=== PATIENT | female | born 1990 | race Caucasian/White ===

== ENCOUNTER 2016-09-20 14:11 | Emergency (ER) | payer MEDICAID, OTHER ==
[~2016-09-20] VITALS: Ht 149.9 cm; Wt 63.0 kg
[2016-09-20 14:36] VITALS: Ht 149.9 cm; Wt 63.0 kg
--- NOTE | 2016-09-20 16:45 | RADRPT ---
PROCEDURE: US Pelvis. CLINICAL INDICATION: Vaginal bleeding TECHNIQUE: Multiple sonographic images of the pelvis were obtained utilizing a transabdominal and endovaginal technique. The images were reviewed on a PACS workstation. COMPARISON: None. FINDINGS: The uterus is visualized and measures 9.1 x 5 x 5.4 cm in size. A single intrauterine gestational s ac is seen. No croup or yolk sac is identified. The mean gestational sac and 91.6 cm which has not is made to Saisho age of 6 weeks and 3 days. There is no evidence for free fluid. The right ovary has a normal echotexture and measures 3 x 2.2 x 2.7 cm. The left ovary has a normal echotexture and measures 2.5 x 1.6 x 1.80 cm. No adnexal masses are noted. IMPRESSION: Single intrauterine gestational sac without evidence of a pole. The findings may represent an early . Correlation with serial beta HCG levels is suggested as well as a short interval follow-up. RPTAT: HPNM Physician Yany Date Time Electronically viewed and signed by Physician Yany on 09/20/2016 16:44 /
[2016-09-20] MEDS ORDERED: ACET500C5 PO (17:02)
--- NOTE | 2016-09-20 17:05 | ERD ---
ER Documentation Chief Complaint Date/Time DATE: 09/20/16 TIME: 17:03 Chief Complaint lower abdominal and vaginal bleeding since yesterday ; LMP - 07/28/16 HPI 26-year-old female presents with vaginal bleeding since yesterday. She is approximately 6 weeks by dates. She was referred from [facility] clinic for evaluation for repeat ultrasound and possible D&C. Patient is a G2 para 1. Patient said that for possible clots but no noticeable tissue. She denies chest pain, shortness of breath or dizziness. ROS All systems reviewed and are negative except as per history of present illness. Medications Home Meds Active Scripts Acetaminophen* (Tylophen*) 500 Mg Capsule, 1 CAP PO Q6H Y for PAIN AND OR ELEVATED TEMP, #15 CAP Prov:FAROOQ STEWART MD 09/20/16 Allergies Allergies: Coded Allergies: No Known Allergy (Unverified , 03/01/14) PMhx/Soc Medical and Surgical Hx: pt denies Medical Hx, pt denies Surgical Hx History of Surgery: No Anesthesia Reaction: No Hx Neurological Disorder: No Hx Respiratory Disorders: No Hx Cardiac Disorders: No Hx Psychiatric Problems: No Hx Miscellaneous Medical Probl: No Hx Alcohol Use: No Hx Substance Use: No Hx Tobacco Use: No Physical Exam Vitals Vital Signs Date Time Temp Pulse Resp B/P Pulse Ox O2 Delivery O2 Flow Rate FiO2 09/20/16 14:36 98.9 102 19 132/75 100 Physical Exam Const: [] Alert, [id number]. Head: Atraumatic Eyes: Normal Conjunctiva ENT: Normal External Ears, Nose and Mouth. Neck: Full range of motion..~ No meningismus. Resp: Clear to auscultation bilaterally Cardio: Regular rate and rhythm, no murmurs Abd: Soft, non tender, non distended. Normal bowel sounds Skin: No petechiae or rashes Back: No midline or flank tenderness Ext: No cyanosis, or edema Neur: Awake and alert Psych: Normal Mood and Affect Procedures/MDM Review of the medical records brought with the patient shows that the patient is Rh+. There is an informal ultrasound which is not detailed that shows possible antibiotic demise at 6 weeks 2 days. A repeat ultrasound today shows a gestational sac without evidence of pole or yolk sac. Differential includes early , failed . There is no evidence of ectopic . Call was placed to [facility] today. Quantitative hCG was drawn today was pending. Patient presents with vaginal bleeding first trimester . Differential includes early normal , incomplete , ectopic . Patient will be discharged home instructions for repeat labs and reevaluation in 2 days. Patient's primary care or OB clinic was advised of the plan. Patient was otherwise advised to recheck for worsening bleeding, fevers, vomiting, new worsening symptoms. The patient was stable with no new complaints during the ER course. Clinically, there is no current evidence to suggest meningitis, sepsis, acute abdomen, pneumonia, acute coronary syndrome, pulmonary embolism, or any other emergent condition appearing to require further evaluation or hospitalization. The patient should certainly return for any new or worsening symptoms per the aftercare instructions. They should otherwise follow-up with her primary care doctor for reevaluation this week. Departure Diagnosis: Primary Impression: Vaginal bleeding in patient at less than 20 weeks ges... Condition: Stable Patient Instructions: Bleeding During Early Additional Instructions: anna examines otro vez en 2 kurtz. hay solo un bolsa horita . es posiblemente aborto , embarazo temprano , o ectopico y necesita TERRY palacio KEVIN N. MD Sep 20, 2016 17:05
== END 2016-09-20 17:20 | disposition home or self-care (01) ==
LOC: FTE 14:11
DX: O20.9 Hemorrhage in early pregnancy, unspecified (principal); Z3A.01 Less than 8 weeks gestation of pregnancy
CPT/HCPCS: 76801; 76817; Z7502

== ENCOUNTER 2016-09-22 15:35 | Emergency (ER) | payer MEDICAID ==
[~2016-09-22] VITALS: Ht 157.5 cm; Wt 64.0 kg
[~2016-09-22 15:35] MED LIST: ACET500C5 PO
[2016-09-22 15:38] VITALS: Ht 157.5 cm; Wt 64.0 kg
[2016-09-22 18:03] LABS: ADD SCAN DIFF NO
[2016-09-22 18:05] LABS: BASOPHIL # 0.1 10^3/ul (0.0-0.1); BASOPHILS % 0.6 % (0.0-2.0); EOSINOPHILS # 0.2 10^3/ul (0.0-0.5); HEMATOCRIT 43.9 % (37.0-47.0); HEMOGLOBIN 14.2 g/dl (12.0-16.0); LYMPHOCYTES # 3.9 10^3/ul (0.8-2.9); LYMPHOCYTES % 33.4 % (15.0-51.0); MEAN CORPUSCULAR HEMOGLOBIN 28.3 pg (29.0-33.0); MEAN CORPUSCULAR HGB CONC 32.3 g/dl (32.0-37.0); MEAN CORPUSCULAR VOLUME 87.6 fl (82.0-101.0); MEAN PLATELET VOLUME 9.8 fl (7.4-10.4); MONOCYTE # 0.9 10^3/ul (0.3-0.9); MONOCYTES % 7.7 % (0.0-11.0); NEUTROPHIL # 6.6 10^3/ul (1.6-7.5); PLATELET COUNT 250 10^3/UL (140-415); RED BLOOD COUNT 5.01 10^6/ul (4.20-5.40); RED CELL DISTRIBUTION WIDTH 13.3 % (11.5-14.5); WHITE BLOOD COUNT 11.8 10^3/ul (4.8-10.8)
[2016-09-22 18:10] LABS: ADD UMIC YES; URINE BILIRUBIN (Dip) NEGATIVE (NEGATIVE); URINE BLOOD (Dip) 3+ (NEGATIVE); URINE COLOR LT. YELLOW (YELLOW); URINE GLUCOSE (Dip) NEGATIVE (NEGATIVE); URINE KETONES (Dip) NEGATIVE (NEGATIVE); URINE LEUKOCYTE ESTERASE (Dip) 1+ (NEGATIVE); URINE NITRITE (Dip) NEGATIVE (NEGATIVE); URINE TOTAL PROTEIN (Dip) NEGATIVE (NEGATIVE); URINE UROBILINOGEN (Dip) 0.2 E.U./dL (0.1-1.0)
[2016-09-22 18:20] LABS: BACTERIA,URINE MODERATE; SQUAMOUS EPITHELIAL CELL,UR MANY; URINE RBCS >50 /HPF (0)
--- NOTE | 2016-09-22 18:29 | RADRPT ---
PROCEDURE: OB Ultrasound. CLINICAL INDICATION: Positive test. TECHNIQUE: Ultrasound of the pelvis was performed with transabdominal and transvaginal sonography in the axial and sagittal planes. COMPARISON: 09/20/2016. FINDINGS: There is a single intrauterine gestational sac. pole and yolk sac are not visualized. There is a subchorionic hemorrhage measuring 0.6 x 0.3 cm and a second subchorionic hemorrhage measuring 0 .7 x 0.1 cm. Mean sac diameter is 1.51 cm. Menstrual age by ultrasound dates is 6 weeks 1 day. This indicates an expected date of delivery of 05/17/2017. The right ovary appears normal measuring 2.9 x 1.7 x 2.0 cm. The left ovary appears normal measuring 2.9 x 1.8 x 2.2 cm. Color Doppler and pulsed Doppler sonography demonstrate normal flow to the ovaries. There is no other pelvic mass or free fluid. IMPRESSION: 1. Single intrauterine gestational sac measuring 1.5 cm. pole and yolk sac are not visualize d indicating probable failed . However, due to the small gestational sac size, follow-up u ltrasound in 7 days is advised. 2. Small subchorionic hemorrhages. 3. Otherwise unremarkable study. RPTAT: QQ .Ivan Fontana MD, Date Time Electronically viewed and signed by .Ivan Fontana MD, on 09/22/2016 18:29 .R/
--- NOTE | 2016-09-22 19:54 | ERD ---
ER Documentation Chief Complaint Date/Time DATE: 09/22/16 TIME: 19:52 Chief Complaint PELVIC PAIN,6 WEEKS ,EPISODES OF BLEEDING HPI This 26-year-old female presents with vaginal bleeding 2 days ago. At that time she had a small gestational sac without pole or yolk sac. She had seen her OB on that same day and had a quantitative hCG G drawn but we do not have the results. Patient appeared to have good follow-up and was supposed to see her OB for recheck today. She presents saying that her OB told her to go to [facility] as they could not see her. The reasons are unclear. The patient had no longer has pain or bleeding has no symptoms of all currently. ROS All systems reviewed and are negative except as per history of present illness. Medications Home Meds Active Scripts Acetaminophen* (Tylophen*) 500 Mg Capsule, 1 CAP PO Q6H Y for PAIN AND OR ELEVATED TEMP, #15 CAP Prov:FAROOQ STEWART MD 09/20/16 Allergies Allergies: Coded Allergies: No Known Allergy (Unverified , 09/22/16) PMhx/Soc Medical and Surgical Hx: pt denies Medical Hx, pt denies Surgical Hx History of Surgery: No Anesthesia Reaction: No Hx Neurological Disorder: No Hx Respiratory Disorders: No Hx Cardiac Disorders: No Hx Psychiatric Problems: No Hx Miscellaneous Medical Probl: No Hx Alcohol Use: No Hx Substance Use: No Hx Tobacco Use: No Smoking Status: Never smoker Physical Exam Vitals Vital Signs Date Time Temp Pulse Resp B/P Pulse Ox O2 Delivery O2 Flow Rate FiO2 09/22/16 15:38 98.5 95 18 125/71 98 Physical Exam Const: [] Head: Atraumatic Eyes: Normal Conjunctiva ENT: Normal External Ears, Nose and Mouth. Neck: Full range of motion..~ No meningismus. Resp: Clear to auscultation bilaterally Cardio: Regular rate and rhythm, no murmurs Abd: Soft, non tender, non distended. Normal bowel sounds Skin: No petechiae or rashes Back: No midline or flank tenderness Ext: No cyanosis, or edema Neur: Awake and alert Psych: Normal Mood and Affect Result Diagram: 09/22/16 2665 Results 24 hrs Laboratory Tests Test 09/22/16 17:49 09/22/16 17:50 White Blood Count 11.810^3/ul Red Blood Count 5.0110^6/ul Hemoglobin 14.2g/dl Hematocrit 43.9% Mean Corpuscular Volume 87.6fl Mean Corpuscular Hemoglobin 28.3pg Mean Corpuscular Hemoglobin Concent 32.3g/dl Red Cell Distribution Width 13.3% Platelet Count 03870^3/UL Mean Platelet Volume 9.8fl Neutrophils % 56.0% Lymphocytes % 33.4% Monocytes % 7.7% Eosinophils % 2.0% Basophils % 0.6% Nucleated Red Blood Cells % 0.0/100WBC Neutrophils # 6.610^3/ul Lymphocytes # 3.910^3/ul Monocytes # 0.910^3/ul Eosinophils # 0.210^3/ul Basophils # 0.110^3/ul Nucleated Red Blood Cells # 0.010^3/ul Beta HCG, Quantitative 39106.0mIU/ml Urine Color LT. YELLOW Urine Clarity SLIGHTLY CLOUDY Urine pH 7.0 Urine Specific [place] <=1.005 Urine Ketones NEGATIVE Urine Nitrite NEGATIVE Urine Bilirubin NEGATIVE Urine Urobilinogen 0.2 E.U./dL Urine Leukocyte Esterase 1+ Urine Microscopic RBC >50/HPF Urine Microscopic WBC >50/HPF Urine Squamous Epithelial Cells MANY Urine Bacteria MODERATE Urine Hemoglobin 3+ Urine Glucose NEGATIVE% Urine Total Protein NEGATIVE Procedures/MDM Quantitative hCG is 26,913. Patient is Rh+ from previous lab results brought by the patient's. Repeat ultrasound shows similar 1.5 cm gestational sac without pole or yolk sac. There is no visible adnexal masses or suggestion of ectopic . Patient was stable amatory throughout the ED course. Patient has vaginal bleeding which is currently resolved of uncertain etiology. She may have incomplete although early or ectopic still cannot be ruled out although less likely. She will need an additional confirmed quantitative hCG and OB follow-up. Patient is advised to follow-up with OB clinic although possibly some insurance issues prevented her from returning to her OB clinic. She should have an additional hCG check in 2 days for further confirmation. She should return sooner for fevers, vomiting, new worsening symptoms Departure Diagnosis: Primary Impression: Vaginal bleeding before 22 weeks gestation Additional Impression: Incomplete Condition: Stable Patient Instructions: Vaginal Bleed in , Miscarriage (Incomplete) Additional Instructions: HAY POQUITO BOLSA . CHEQUE HORMONERS OTOR VEZ 2-3 SUMMERS. MAS PRONTO PARA MAS SIMPTOMAS. FAROOQ STEWART MD Sep 22, 2016 19:54
[2016-09-22 20:11] VITALS: BP 136/75; PULSE 93; RESP 16; TEMP 98.5
== END 2016-09-22 20:12 | disposition home or self-care (01) ==
LOC: FTE 15:35
DX: O20.9 Hemorrhage in early pregnancy, unspecified (principal); R10.2 Pelvic and perineal pain; Z3A.01 Less than 8 weeks gestation of pregnancy
CPT/HCPCS: 76801; 76817; 81001; 84702; 85025; Z7502; 81003

== ENCOUNTER 2016-10-03 14:34 | Emergency (ER) | payer MEDICAID ==
[~2016-10-03] VITALS: Ht 160 cm; Wt 63.0 kg
[2016-10-03 14:35] VITALS: Ht 160 cm; Wt 63.0 kg
[2016-10-03] MEDS ORDERED: ACETAMINOPHEN 325 MG TAB PO STA (15:03)
[2016-10-03 15:44] LABS: ADD SCAN DIFF NO
[2016-10-03 15:49] LABS: BASOPHIL # 0.1 10^3/ul (0.0-0.1); BASOPHILS % 0.5 % (0.0-2.0); EOSINOPHILS # 0.2 10^3/ul (0.0-0.5); EOSINOPHILS % 1.5 % (0.0-7.0); HEMATOCRIT 39.1 % (37.0-47.0); HEMOGLOBIN 13.1 g/dl (12.0-16.0); LYMPHOCYTES # 2.6 10^3/ul (0.8-2.9); LYMPHOCYTES % 22.7 % (15.0-51.0); MEAN CORPUSCULAR HEMOGLOBIN 29.5 pg (29.0-33.0); MEAN CORPUSCULAR HGB CONC 33.5 g/dl (32.0-37.0); MEAN CORPUSCULAR VOLUME 88.1 fl (82.0-101.0); MEAN PLATELET VOLUME 10.2 fl (7.4-10.4); MONOCYTE # 0.8 10^3/ul (0.3-0.9); MONOCYTES % 6.7 % (0.0-11.0); NEUTROPHIL # 7.9 10^3/ul (1.6-7.5); NEUTROPHILS % 68.2 % (39.0-77.0); PLATELET COUNT 209 10^3/UL (140-415); RED BLOOD COUNT 4.44 10^6/ul (4.20-5.40); RED CELL DISTRIBUTION WIDTH 13.1 % (11.5-14.5); WHITE BLOOD COUNT 11.6 10^3/ul (4.8-10.8)
--- NOTE | 2016-10-03 15:56 | RADRPT ---
PROCEDURE: OB Ultrasound. CLINICAL INDICATION: Positive test. Vaginal bleeding. TECHNIQUE: Ultrasound of the pelvis was performed with transabdominal and transvaginal sonography in the axial and sagittal planes. COMPARISON: OB ultrasound dated 09/22/2016 which demonstrated a single intrauterine gestational sa c with no pole or yolk sac. FINDINGS: The previously noted intrauterine gestational sac is no longer present. Endometrial thickness is 10 .2 mm. The uterus is normal in size with no mass demonstrated. The right ovary appears normal measuring 2.4 x 2.3 x 2.3 cm. The left ovary appears normal measuring 2.1 x 1.5 x 2.2 cm. Color Doppler and pulsed Doppler sonography demonstrate normal flow to the ovaries. There is no other pelvic mass or free fluid. IMPRESSION: 1. Previously noted intrauterine gestational sac is no longer present consistent with recent sponta neous . 2. Normal endometrium. 3. Otherwise normal study. RPTAT: QQ .Ivan Fontana MD, Date Time Electronically viewed and signed by .Ivan Fontana MD, on 10/03/2016 15:56 .R/
--- NOTE | 2016-10-03 16:53 | ERD ---
ER Documentation Chief Complaint Date/Time DATE: 10/03/16 TIME: 16:52 Chief Complaint vag bleed x 2 weeks with cramping , 8 weeks preg HPI 26-year-old female approximately 8 weeks by dates and has had vaginal bleeding intermittently for last 2 weeks with cramping. She seen by me twice approximately 2 weeks AGO. She had 2 successive ultrasounds with failed . She is being followed by OB but was being referred to [facility] for possible D&C due to insurance issues. Her second visit she had a quantitative hCG of 26,000 and again a failed with gestational sac only. Patient appears that she may have been lost to follow-up and has been bleeding at home for the last 2 weeks and today passed some clots and possible tissue and had worsening pain. She denies fevers, vomiting, additional symptoms. Patient is Rh+ from review of records. ROS All systems reviewed and are negative except as per history of present illness. Medications Home Meds Active Scripts Acetaminophen* (Tylophen*) 500 Mg Capsule, 1 CAP PO Q6H Y for PAIN AND OR ELEVATED TEMP, #15 CAP Prov:FAROOQ STEWART MD 09/20/16 Allergies Allergies: Coded Allergies: No Known Allergy (Unverified , 09/22/16) PMhx/Soc History of Surgery: No Anesthesia Reaction: No Hx Neurological Disorder: No Hx Respiratory Disorders: No Hx Cardiac Disorders: No Hx Psychiatric Problems: No Hx Miscellaneous Medical Probl: No Hx Alcohol Use: No Hx Substance Use: No Hx Tobacco Use: No Physical Exam Vitals Vital Signs Date Time Temp Pulse Resp B/P Pulse Ox O2 Delivery O2 Flow Rate FiO2 10/03/16 14:35 100.0 88 18 136/78 99 Physical Exam Const: [] Alert, uncomfortable due to active pelvic cramping. Head: Atraumatic Eyes: Normal Conjunctiva ENT: Normal External Ears, Nose and Mouth. Neck: Full range of motion..~ No meningismus. Resp: Clear to auscultation bilaterally Cardio: Regular rate and rhythm, no murmurs Abd: Soft, non tender, non distended. Normal bowel sounds. Pelvic exam with a umbrella tipper shows some likely products of conception in the office. There was significant bleeding. Skin: No petechiae or rashes Back: No midline or flank tenderness Ext: No cyanosis, or edema Neur: Awake and alert Psych: Normal Mood and Affect Result Diagram: 10/03/16 1525 Results 24 hrs Laboratory Tests Test 10/03/16 15:25 White Blood Count 11.610^3/ul Red Blood Count 4.4410^6/ul Hemoglobin 13.1g/dl Hematocrit 39.1% Mean Corpuscular Volume 88.1fl Mean Corpuscular Hemoglobin 29.5pg Mean Corpuscular Hemoglobin Concent 33.5g/dl Red Cell Distribution Width 13.1% Platelet Count 18549^3/UL Mean Platelet Volume 10.2fl Neutrophils % 68.2% Lymphocytes % 22.7% Monocytes % 6.7% Eosinophils % 1.5% Basophils % 0.5% Nucleated Red Blood Cells % 0.0/100WBC Neutrophils # 7.910^3/ul Lymphocytes # 2.610^3/ul Monocytes # 0.810^3/ul Eosinophils # 0.210^3/ul Basophils # 0.110^3/ul Nucleated Red Blood Cells # 0.010^3/ul Beta HCG, Quantitative 6178.5mIU/ml Current Medications Medications (Trade) Dose Ordered Sig/Nacho Route PRN Reason Start Time Stop Time Status Last Admin Dose Admin Acetaminophen (Tylenol Tab) 650 mg ONCE STAT PO 10/03/16 15:03 10/03/16 15:05 DC 10/03/16 15:12 Procedures/MDM Pelvic exam with umbrella tipper using ring forceps the tissue was removed from the office. The bleeding subsequently immediately stopped.. Patient felt much better after removal of the tissue. Pelvic ultrasound shows a previous gestational sac is no longer than there is no evidence of adnexal or intrauterine . Quantitative hCG today is 6178. Hemoglobin is normal. Patient stable ambulatory toward the end of the ER course. With no complaints. Patient appears to have a completed miscarriage. Quantitative hCG levels are still high but given the clinical course with products of conception removed today suspicion for ectopic is low but patient is advised to have a recheck hCG until approaches further towards 0. Recommending a recheck in 2-3 days. She should return sooner for fevers, vomiting, return of bleeding , new worsening symptoms. Signs or symptoms do not suggest acute abdomen, appendicitis, additional causes of lower abdominal pain. Departure Diagnosis: Primary Impression: , complete Condition: Stable Patient Instructions: Miscarriage, Spontaneous (Completed) Additional Instructions: CHEQU HORMONES OTOR VEZ 2-3 SUMMERS. NO HAY MAS BOLSA EN ULTRSONIDO. Cheque otro vez con richards doctor primario en el proximo summers or regresa para mas o nueva simptomas. FAROOQ STEWART MD Oct 03, 2016 16:53
== END 2016-10-03 18:07 | disposition home or self-care (01) ==
LOC: FTE 14:34
DX: O03.9 Complete or unspecified spontaneous abortion without complication (principal)
CPT/HCPCS: 76801; 76817; 84702; 85025; 88305; Z7610

== ENCOUNTER 2017-03-23 13:30 | Outpatient (CLI) | payer MEDICAID ==
[~2017-03-23] VITALS: Ht 149.9 cm; Wt 60.9 kg
[2017-03-23 14:00] VITALS: Ht 149.9 cm; Wt 60.9 kg
[2017-03-23 14:01] VITALS: BP 97/59; PULSE 88
[2017-03-23] MEDS ORDERED: PRENAT PO (14:04)
[2017-03-23 15:12] LABS: ADD UMIC YES; UR ASCORBIC ACID NEGATIVE (NEGATIVE); UR BACTERIA FEW /HPF (NONE SEEN); UR BILIRUBIN (Dip) NEGATIVE (NEGATIVE); UR BLOOD (Dip) 3+ mg/dL (NEGATIVE); UR CLARITY SLIGHTLY CLOUDY (CLEAR); UR COLOR YELLOW (YELLOW); UR GLUCOSE (Dip) NEGATIVE (NEGATIVE); UR KETONES (Dip) TRACE mg/dL (NEGATIVE); UR LEUKOCYTE ESTERASE (Dip) TRACE Leu/ul (NEGATIVE); UR MUCUS FEW /HPF (NONE SEEN); UR NITRITE (Dip) NEGATIVE (NEGATIVE); UR RBC > 182 /HPF (0-5); UR SPECIFIC GRAVITY (Dip) 1.013 (1.003-1.030); UR SQUAMOUS EPITHELIAL CELL FEW /HPF (FEW); UR TOTAL PROTEIN (Dip) 1+ mg/dl (NEGATIVE); UR UROBILINOGEN (Dip) NEGATIVE (NEGATIVE)
--- NOTE | 2017-03-23 15:29 | RADRPT ---
PROCEDURE: OB ultrasound, limited CLINICAL INDICATION: labor. TECHNIQUE: Color and barrera-scale ultrasound images of an intrauterine gestation were obtained. COMPARISON: None FINDINGS: A single live intrauterine gestation is identified in cephalic position with an estimated hear t rate of 141 beats per minute. The placenta is located posteriorly and has a grade of 1. The cerv ix measures 6.3 cm in length and appears closed. No evidence of previa or abruption identified. IMPRESSION: Single live intrauterine gestation in cephalic position. Closed cervix measuring 6.3 cm in length. RPTAT: AA .Zechariah Sutherland MD, MD Date Time Electronically viewed and signed by .Zechariah Sutherland MD, on 03/23/2017 15:29 .P/
--- NOTE | 2017-03-23 18:36 | QN ---
Documentation Comment g1po iup 20 weeks co of abd pain vss exam wnl no cva tenderness a/p iup 20 weeks false labor UTI dc home BETSY GRANT MD Mar 23, 2017 18:36
== END 2017-03-23 17:10 | disposition home or self-care (01) ==
LOC: OBT 13:30 → L-D 13:30 → OBT 17:10
PROVIDERS: ATTEND Obstetrics & Gynecology
DX: O26.892 Other specified pregnancy related conditions, second trimester (principal); Z3A.20 20 weeks gestation of pregnancy
CPT/HCPCS: 76817; 81001; G0463

== ENCOUNTER 2017-07-26 21:05 | Inpatient (IN) | END 2017-07-29 18:17 | disposition home or self-care (01) | DRG 775 ==

== ENCOUNTER 2018-10-27 10:06 | Emergency (ER) | payer MEDICAID ==
[~2018-10-27] VITALS: Ht 154.9 cm; Wt 63.5 kg
[~2018-10-27 10:06] MED LIST changes: -ACET500C5 PO; +IBUP-1542 PO; +PRENAT PO
[2018-10-27 10:18] VITALS: Ht 154.9 cm; Wt 63.5 kg
[2018-10-27] MEDS ORDERED: KETOROLAC 30 MG INJ IV STA (11:40)
[2018-10-27] MEDS ORDERED: SOD CHLORIDE 0.9% 1,000 ML IV ONE (12:00)
[2018-10-27] MEDS ORDERED: METOCLOPRAMIDE 10 MG INJ IV ONE (12:00)
[2018-10-27] MEDS ORDERED: DIPHENHYDRAMINE 50 MG INJ IV ONE (12:00)
[2018-10-27] MEDS ORDERED: DEXAMETHASONE 10 MG/ML 1 ML INJ IM ONE (12:00)
[2018-10-27] MEDS ORDERED: ONDA4TAB14 PO (13:35)
[2018-10-27] MEDS ORDERED: NAPR-985 PO (13:35)
[2018-10-27 13:54] VITALS: BP 110/66; PULSE 68; RESP 16
--- NOTE | 2018-10-27 14:54 | ERD ---
ER Documentation Chief Complaint Chief Complaint headache , dizziness , nausea x 3 days HPI History of Present Illness: 28-year-old female with no past medical history coming today with complaint of headache and nausea. Associated symptoms include photophobia, phonophobia. Patient reports intermittent episode of near syncope with episode of dizziness. Patient reports this is happened 2-3 times over the past 3 days. Symptoms have been present for 3 days. Patient reports similar symptoms 4 months ago in which she was diagnosed with migraine. Patient denies chest pain, shortness of breath, palpitations, diaphoresis during episodes. Or currently. At home pharmacological/nonpharmacological treatment for symptoms: Acetaminophen last night Denies social concerns; Denies recent foreign travel ROS All systems reviewed and are negative except as per history of present illness. Medications Home Meds Active Scripts Ondansetron (Ondansetron Odt) 4 Mg Tab.rapdis, 4 MG PO Q8 PRN for NAUSEA AND/OR VOMITING, #10 TAB Prov:JOAQUIN CRUZ NP 10/27/18 Naproxen* (Naprosyn*) 500 Mg Tablet, 500 MG PO BID PRN for PAIN AND/OR INFLAM MATION, #30 TAB Prov:JOAQUIN CRUZ NP 10/27/18 Ibuprofen* (Ibuprofen*) 600 Mg Tablet, 600 MG PO Q6H PRN for PAIN LEVEL 4-6, #60 TAB 0 Refills Prov:STAS DAVIS MD 07/28/17 Reported Medications Multivit/Min/Fol Ac/Iron/Pren* ( S*) 1 Tab Tab, 1 TAB PO DAILY, TAB 03/23/17 Allergies Allergies: Coded Allergies: No Known Allergy (Unverified , 07/26/17) PMhx/Soc Medical and Surgical Hx: pt denies Medical Hx, pt denies Surgical Hx History of Surgery: No Anesthesia Reaction: No Hx Neurological Disorder: No Hx Respiratory Disorders: No Hx Cardiac Disorders: No Hx Psychiatric Problems: No Hx Miscellaneous Medical Probl: No Hx Alcohol Use: No Hx Substance Use: No Hx Tobacco Use: No Smoking Status: Never smoker FmHx Family History: diabetes, coronary disease Physical Exam Vitals Vital Signs Date Temp Pulse Resp B/P (MAP) Pulse Ox O2 O2 Flow FiO2 Time Delivery Rate 10/27/18 98.2 68 16 110/66 99 Room Air 13:54 (81) 10/27/18 98.2 90 18 118/68 99 10:18 (85) Physical Exam Const: No acute distress Head: Atraumatic Eyes: Normal Conjunctiva ENT: Normal External Ears, Nose and Mouth. Neck: Full range of motion. No meningismus. Resp: Clear to auscultation bilaterally Cardio: Regular rate and rhythm, no murmurs Abd: Soft, non tender, non distended. Normal bowel sounds Skin: No petechiae or rashes Back: No midline or flank tenderness Ext: No cyanosis, or edema Neur: Awake and alert. Neuro exam unremarkable. Patient patient speaking clear sentences. No focal deficits. No facial asymmetry. Psych: Normal Mood and Affect Results 24 hrs Laboratory Tests Test 10/27/18 12:01 POC Beta HCG, Qualitative NEGATIVE Current Medications Medications Dose Sig/Nacho Start Time Status Last (Trade) Ordered Route PRN Stop Time Admin Dose Reason Admin Sodium 1,000 ml @ Q1H ONCE 10/27/18 DC 10/27/18 Chloride 1,000 mls/hr IV 12:00 12:13 10/27/18 12:59 5 mg ONCE ONCE 10/27/18 DC 10/27/18 Metoclopramid IV 12:00 12:13 e HCl 10/27/18 12:01 (Reglan) 12.5 mg ONCE ONCE 10/27/18 DC 10/27/18 Diphenhydrami IV 12:00 12:13 ne HCl 10/27/18 12:01 (Benadryl) Ketorolac 30 mg ONCE STAT 10/27/18 DC 10/27/18 Tromethamine IV 11:40 12:14 (Toradol) 10/27/18 11:44 10 mg ONCE ONCE 10/27/18 DC 10/27/18 Dexamethasone IM 12:00 12:13 (Decadron) 10/27/18 12:01 Procedures/MDM ED course includes a thorough examination and history. Medications: IV NS, Zofran, Reglan, Benadryl Imaging:-- Labs: Urine Low suspicion for life-threatening medical emergency. Low suspicion for neurological emergency. Patient hemodynamically stable. Otherwise healthy patient presenting with constellation of symptoms likely representing migraine/headache as characterized by history, physical exam fi ndings, lab findings. Urine negative. No respiratory distress, otherwise relatively well appearing and nontoxic. Pa tient reassessment: Patient denies pain or nausea. Patient well-appearing with no acute distress. Patient remains hemodynamically stable. Disposition given. Patient educated on diagnoses, prescriptions, follow-up care, return precautions. Strict return precautions given for worsening condition; questions answered discharge. Disposition for discharge with followup in 2 days with PCP/clinic. Departure Diagnosis: Primary Impression: Headache Headache type: unspecified Headache chronicity pattern: acute headache In tractability: not intractable Qualified Codes: R51 - Headache Additional Impressions: Migraine Migraine type: unspecified Status migrainosus presence: without status migrainosus Intractability: not intractable Qualified Codes: G43.909 - Migraine, unspecified, not intractable, without status migrainosus Near syncope Condition: Stable Patient Instructions: Migraines and Cluster Headaches, Near Syncope, Unknown [facility] Usted se jung hecho un examen mdico de control que le indica que no est en marzena condicin que requiera tratamiento urgente en el Departamento de Emergencia. Un estudio ms profundo y el tratamiento de russo condicin pueden esperar sin ningn riesgo hasta que usted sea atendida/o en el consultorio de russo mdico o marzena clnica. Es responsabilidad suya arreglar marzena rory para el seguimiento del chidi. MANEJO DE CONDICIONES NO URGENTES EN EL FUTURO 1) Si usted tiene un mdico de atencin primaria: Usted debera llamar a russo mdico de atencin primaria antes de venir al departamento de emergencia. Despus de las horas de consultorio, russo doctor o russo asociado/a est disponible por telfono. El mdico o enfermero de billie en el servicio telefnico puede asesorarle por anthony medio para atender el problema, o chidi contrario se puede programar marzena rory. 2) Si usted no tiene un mdico de atencin primaria: Llame al mdico o clnica de referencia que aparece abajo sunshine las horas de consultorio para hacer marzena rory para que le vean. CLINICAS: [facility] [phone] [facility] [phone] [facility] [phone] [facility] [phone] [place] [id number] [phone] [facility]. [phone] [place] [facility] () Usted se jung hecho un examen mdico de control que le indica que no est en marzena condicin que requiera tratamiento urgente en el Departamento de Emergencia. Un estudio ms profundo y el tratamiento de russo condicin pueden esperar sin ningn riesgo hasta que usted sea atendida/o en el consultorio de russo mdico o marzena clnica. Es responsabilidad suya arreglar marzena rory para el seguimiento del chidi. MANEJO DE CONDICIONES NO URGENTES EN EL FUTURO 1) Si usted tiene un mdico de atencin primaria: Usted debera llamar a russo mdico de atencin primaria antes de venir al departamento de emergencia. Despus de las horas de consultorio, russo doctor o russo asociado/a est disponible por telfono. El mdico o enfermero de billie en el servicio telefnico puede asesorarle por anthony medio para atender el problema, o chidi contrario se puede programar marzena rory. 2) Si usted no tiene un mdico de atencin primaria: Llame al mdico o condado institucions de referencia que aparece abajo sunshine las horas de consultorio para hacer marzena rory para que le vean. SI USTED NO PUEDE PAGAR PARA GRACIELA UN MEDICO puede ir a: [facility] [address] [place] [address] [facility] [address] [place] [address] [facility] [address] [place] [address] [facility] [address], [place] [id number] Additional Instructions: Muchas rodney por permitirnos participar en russo cuidado. Russo thanh y seguridad es nuestra principal prioridad en [facility]. Es importante leer todas las instrucciones de elly y la educacin que se proporcionan en russo paquete de elly. Llame a russo mdico de atencin primaria MAANA para marzena rory sunshine los prximos 2 a 4 harden y lleve toda la informacin y los medicamentos recetados. Llene las recetas y siga exactamente las instrucciones de la etiqueta. -Naproxeno es un medicamento antiinflamatorio / para el dolor; tome randall medicam ento diariamente segn lo prescrito para la prxima semana para ayudar con la hinchazn / inflamacin / dolor. -Zofran es un medicamento para las nuseas / vmitos; tome randall medicamento segn sea necesario para las nuseas / vmitos / disminucin del apetito. Si los sntomas empeoran y russo proveedor no est disponible, regrese inmediatamente al Departamento de Emergencias. --- Thank you very much for allowing us to participate in your care. Your health and safety is our top priority at [facility]. It is important to read all discharge instructions and education provided in your discharge packet. Call your primary care doctor TOMORROW for an appointment during the next 2-4 days and bring all the information and medications prescribed. Have prescriptions filled and follow precisely the directions on the label. -Naproxen is a anti-inflammatory/pain medication; take this medication daily as prescribed for the next week to help with swelling/inflammation/pain. -Zofran is a medication for nausea/vomitting; take this medication as needed for nausea/vomiting/decreased appetite. If the symptoms get worse and your provider is unavailable, return to the Emergency Department immediately. JOAQUIN CRUZ NP Oct 27, 2018 14:54
== END 2018-10-27 13:57 | disposition home or self-care (01) ==
LOC: FTE 10:06
DX: G43.909 Migraine, unspecified, not intractable, without status migrainosus (principal); R55 Syncope and collapse
CPT/HCPCS: 81025; 93005; 96361; 96372; 96374; 96375; J1100; J1200; J1885; J2765; J7030; Z7502